=== PATIENT | male | born 1930 | race Caucasian/White ===

== ENCOUNTER 2017-10-17 09:22 | Emergency (ER) | payer MEDICARE, OTHER ==
[2017-10-17] MEDS ORDERED: Lidocaine 2% Jelly 5 ML Urojet MUCMEM ONE (11:46)
[2017-10-17] MEDS ORDERED: Lidocaine 2% Jelly 5 ML Urojet ONE (11:49)
[2017-10-17] MEDS ORDERED: Diphtheria,Pertussis(Acell),Tetanus Vaccine 0.5 ML SDV IM ONE (12:28)
--- NOTE | 2017-10-17 12:41 | CR ---
INDICATION: Fall. CHEST: Two PA views and a lateral view of the chest were obtained 10/17/2017 - no comparisons. The heart is normal in size and shape. Bilateral nipple shadows are noted. A definite active infiltrate or effusion was not identified. The aorta is tortuous with calcification in the arch and minimally in the descending portion. Bridging hyperostotic change is severe at a midthoracic level anteriorly. A mild dextroconvex scoliosis of the thoracic spine is also noted. IMPRESSION: No acute process. MTDD
--- NOTE | 2017-10-21 13:06 | ER ---
DATE SEEN: 10/17/2017 HISTORY OF PRESENT ILLNESS: This is an 87-year-old bachelor man, who lives with his brother and was getting into a truck today and slipped. He slipped as he got into a pickup truck. He denies head, neck, chest, or upper extremity trauma or abdominal trauma. He denies lower extremity problem, but he has abrasions on his right knee, which he did not relate to me. REVIEW OF SYSTEMS: HEAD: He denies headache. EYES: He has loss of vision in his left eye because of left cataract. He had a previous cataract surgery, right eye. ENT: He has his own teeth. Throat: He has mild difficulty swallowing and dysphagia. NECK: No neck stiffness or tenderness. CARDIORESPIRATORY: He denies shortness of breath or irregular heartbeat. He does have a cough intermittently. This is unchanged and is his baseline. No history of palpitations, syncope, near-syncope, or falling. GASTROINTESTINAL: He denies change in bowels. He has marked fullness of the bladder and some mild bloating. GENITOURINARY: [facility] He has had a catheter in the past. He refuses to have another catheter placed today and does not want a catheter in. He has fullness in his abdomen, which he attributes to his bloating from his prostate cancer in the bladder. He passes urine periodically. He notes that the [facility] not [facility] about [facility] a [facility] as he did not want one, so he is "getting along reasonably well." MUSCULOSKELETAL: He denies arthritis, joint pain, hip pain, or arm pain. PSYCHOLOGICAL: Negative for depression. NEUROLOGIC: Negative for stroke, CVA, or seizures. PHYSICAL EXAMINATION: VITAL SIGNS: Blood pressure 129/92, heart rate 70 and irregular, respirations 20, oxygen saturation 100%, temperature is 36.9 degrees, BMI is 20.5 kg/m2, and 40.82 kg. GENERAL: An alert, asthenic-looking man, slightly pale. HEENT: Pharynx without abnormality. No macroglossia. Teeth appear to be in good repair. NECK: No bruits. No cervical adenopathy or thyromegaly. LUNGS: Clear without rales, rhonchi, or wheezes. HEART: S1 and S2. There is an occasional irregular rhythm. No tachycardia. ABDOMEN: Soft, but a mass that extends from the symphysis to the bladder top and is 29 cm. No bruits. No masses other than his massive bladder. No CVA percussion tenderness. GENITOURINARY: He has some swelling. He is uncircumcised and has pink discoloration of his Attends. There is mild swelling of the penile glans secondary to maceration. EXTREMITIES: Lower extremities are without edema. He has mild peripheral neuropathy on palpation. NEUROLOGIC: Deep tendon reflexes in the upper and lower extremities are symmetrical, 1+, and normoactive. Cranial nerves 2 through 12 are intact. He has markedly decreased hearing. No past-pointing. No dysmetria. No pronator drift. No weakness in the upper and lower extremities. I can pull his whole body down with his toes in dorsiflexion. He needs a Morales catheter placed. DIAGNOSTIC DATA: EKG has occasional PAC, sinus rhythm otherwise, 64, with increased QT interval at 178, LVH, without any sign of ischemia or ST elevation. MEDICATIONS: 1. Apixaban 5 mg b.i.d. 2. Vitamin D 1000 mg daily. 3. Ciprofloxacin started on the 15 of October 250 mg b.i.d. for 5 days. 4. Latanoprost 0.005 ophthalmic solution both eyes at bedtime. 5. Levothyroxine 0.025 mg - 25 mcg per day. 6. Metformin 1000 mg b.i.d. 7. Methenamine hippurate 1 g every 24 hours. 8. Metoprolol 200 mg succinate daily. 9. Pyridium 100 mg daily. 10.Simvastatin 40 mg daily. Once the patient finishes his ciprofloxacin, then he is to start Septra DS, and his ciprofloxacin will be finished on 10/20/2017, and he is to follow up. ASSESSMENT: 1. The patient had a quick look ultrasound, demonstrated at least 1200+ mL with the bladder distended 29 to 30 cm from the symphysis to the fundus in the apex of the bladder. This is a nontender mass causing a very protuberant lower abdomen. 2. Presbycusis, difficult hearing. 3. Urinary tract infection secondary to prostate cancer outlet obstruction. 4. Prostate cancer. 5. Atrial fibrillation with controlled rate. 6. Hypertension, controlled. 7. Hypothyroidism, controlled. 8. Bizarre-colored urine, was pink in character, probably secondary to the hippurate, ciprofloxacin, and Pyridium. The patient is a bachelor, has a fair support system, and seemed to be supported very well by his nephew who is here. 9. Left scapular winging from loss of serratus anterior strength (C5, C6, and C7 nerves), secondary to long thoracic nerve injury. 10.Trace of blood in his nose in the right naris secondary to a fall, no suggestion of significant bleed. 11.Left cataract. 12.Asthenia. 13.Hypertension, treated. 14.Additional comment, right knee superficial abrasion. PLAN: Place Morales catheter to treat, as the bladder outlet obstruction is very significant. His creatinine is 2.5. OTHER LABORATORY RESULTS PENDING: WBC 12,800, PMNs 87, lymphocytes 5, and monos 8, hemoglobin 12.4, and platelets 226,000. Complete metabolic panel: Sodium 138, potassium 4.4, chloride 102, CO2 of 21, BUN 57, creatinine 2.5, GFR 24, BUN-creatinine ratio 23, and glucose 288. Calcium 10.4 (probably secondary to his prostate surgery). Troponin is less than 0.017. Albumin 2.7. ADDITIONAL DIAGNOSES: 1. Chronic kidney disease, stage 4. 2. Neutrophilic leukocytosis. 3. Diabetes with elevated glucose. 4. Hypercalcemia secondary to prostatism and invasion of bone. No evidence for myocardial ischemia. Placement of Coude catheter was tihout difficulty. Urine output is 2,200 mL. He sees his urologist next week. He was somewhat reluctant to have a Morales catheter placed, but in view of his chronic kidney disease, stage 4, his large bladder, and creatinine of 2.5, I felt it was inappropriate not to have a catheter placed in spite of his best wishes. He did not object to catheter placement, but he preferred not to have it placed. The nephew stated, "he is very balky". When informed of his choice and the rationale for catheter placement, he was very willing to have a catheter placed. In addition to this, he has moderate asthenia and muscle wasting. Previous surgery; right cataract surgery, left cataract remains, and TURP. 5. He was pleased to have Morales placed and felt better. PLAN: 1. Follow up with MD next week. 2. Conitnue antibiotic: A. He finished the Cipro. B. He is to start Septra DS as directed by his MD. TIME SEEN: The patient was seen at 0945 hours. /[id number] MONTRELL/THERESA
--- NOTE | 2017-10-22 13:23 | ER ---
DATE SEEN: 10/17/2017 PHONE VISIT WITH RELATIVE: 10/18/2017 Chandan was seen yesterday, had a Morales catheter placed, had 2500 mL of urine removed. I spoke to his nephew, Phoenix Sanchez, and he is feeling tremendously better today. He was so appreciative of his catheter placement last night, even though he was somewhat reluctant to have it placed. His nephew, Phoenix, said he is doing great today. However, he has not checked on him since this morning. I was advised by his nephew that he is so hard of hearing that he does not grape picker the phone. He has a urine culture that says he is resistant to Cipro. We did not put him on antibiotics. [facility] He was already on antibiotic, he [facility] and that was followed by [facility] BURNS to be started today. On the basis of his lab study, he is sensitive to the Septra, and he should be doing okay. His nephew has been advised to check him this evening to make sure he is doing okay, and if not, he should call the hospital. /[id number] MONTRELL/THERESA
== END 2017-10-17 14:15 | disposition home or self-care (01) ==
LOC: FB.ED 09:22
DX: C61 Malignant neoplasm of prostate (principal); N13.8 Other obstructive and reflux uropathy; H26.9 Unspecified cataract; R04.0 Epistaxis; E03.9 Hypothyroidism, unspecified; I48.91 Unspecified atrial fibrillation; H91.10 Presbycusis, unspecified ear; S80.211A Abrasion, right knee, initial encounter; W17.89XA Other fall from one level to another, initial encounter
CPT/HCPCS: 36415; 51702; 71046; 80053; 81001; 84484; 85025; 87086; 87088; 87186; 90472; 90715; 93005; 99284